=== PATIENT | female | born 1960 | race Caucasian/White ===

== ENCOUNTER 2016-04-26 20:50 | Emergency (ER) | payer OTHER ==
[~2016-04-26] VITALS: Ht 172.7 cm; Wt 48.5 kg
[2016-04-26 21:00] VITALS: BP 114/76
== END 2016-04-27 00:30 | disposition left against medical advice (07) ==
LOC: ER 20:56
DX: M25.571 Pain in right ankle and joints of right foot (principal); Z53.21 Procedure and treatment not carried out due to patient leaving prior to being seen by health care provider; W50.1XXA Accidental kick by another person, initial encounter; Y93.89 Activity, other specified; Y99.8 Other external cause status; Y92.89 Other specified places as the place of occurrence of the external cause